=== PATIENT | female | born 1990 | race Two or more races ===

== ENCOUNTER 2021-02-21 08:37 | Emergency (ER) | payer SELFPAY ==
[~2021-02-21] VITALS: Ht 160 cm; Wt 97.7 kg
--- NOTE | 2021-02-21 09:26 | ED.ADGEN ---
General Adult EDM: Chief Complaint: ABDOMINAL PAIN HPI: HPI: Patient is a 30 year old female coming in for left lower quadrant abdominal pain woke her from sleep a few hours prior to arrival. Patient states she will vomit once. States she felt fine when she went to bed last night. Denies any constipation, diarrhea, hematuria dysuria. No history of kidney stones or abdominal surgeries. LMP 1 week ago. Review of Systems: Review of Systems: All other systems within normal limits except for as noted in the HPI Current Medications: Current Medications Medications (Trade) Dose Ordered Sig/Tamar Start Time Stop Time Status Last Admin Dose Admin Fentanyl Citrate (Fentanyl 2ml Vial) 75 mcg 1X ONCE 02/21/21 11:00 02/21/21 11:01 DC 02/21/21 10:55 75 MCG Info (CONTRAST GIVEN -- Rx MONITORING) 1 each PRN DAILY PRN 02/21/21 12:00 02/21/21 14:02 DC Iohexol (Omnipaque 300 Mg/ml) 75 ml 1X ONCE 02/21/21 12:00 02/21/21 12:01 DC 02/21/21 12:09 75 ML Ketorolac Tromethamine (Toradol 15mg Vial) 15 mg 1X ONCE 02/21/21 11:45 02/21/21 11:46 DC 02/21/21 12:04 15 MG Ondansetron HCl (Zofran Odt) 4 mg 1X ONCE 02/21/21 14:15 02/21/21 14:16 DC 02/21/21 14:08 4 MG Ondansetron HCl (Zofran) 4 mg 1X ONCE 02/21/21 10:00 02/21/21 10:01 DC 02/21/21 09:58 4 MG Sodium Chloride 1,000 ml @ 1,000 mls/hr 1X ONCE 02/21/21 12:30 02/21/21 13:29 DC 02/21/21 12:33 1,000 MLS/HR Tamsulosin HCl (Flomax) 0.4 mg 1X ONCE 02/21/21 12:45 02/21/21 12:46 DC 02/21/21 12:33 0.4 MG Allergies: Allergies: Allergies Coded Allergies Type Severity Reaction Last Updated Verified No Known Drug Allergies 02/21/21 No Physical Exam: PE: Constitutional: Well developed, well nourished, moderate acute distress, non- toxic appearance. [] HENT: Normocephalic, atraumatic, bilateral external ears normal, nose normal. [] Eyes: PERRLA, conjunctiva normal, no discharge. [] Neck: No rigidity, supple, no stridor. [] Cardiovascular: Regular rate and rhythm, brisk cap refill [] Lungs & Thorax: Non labored symmetric respirations, no tachypnea or respiratory distress [] Abdomen: Soft, nondistended, left lower quadrant tenderness with guarding. Skin: Warm, dry, no erythema, no rash. [] Back: Unremarkable Extremities: No deformities, range of motion grossly intact, no lower extremity edema [] Neurologic: Alert and oriented X 3, no focal deficits noted. [] Psychologic: Affect normal, judgement normal, mood normal. [] Current Patient Data: Labs: Laboratory Tests Test 02/21/21 09:40 02/21/21 10:05 02/21/21 10:40 Urine Collection Type Void Urine Color Yellow Urine Clarity Turbid Urine pH 5.5 (<5.0-8.0) Urine Specific [place] >=1.030 (1.000-1.030) Urine Protein Negative mg/dL (NEG-TRACE) Urine Glucose (UA) Negative mg/dL (NEG) Urine Ketones (Stick) Negative mg/dL (NEG) Urine Blood Large (NEG) Urine Nitrite Negative (NEG) Urine Bilirubin Negative (NEG) Urine Urobilinogen Dipstick 0.2 mg/dL (0.2 mg/dL) Urine Leukocyte Esterase Trace (NEG) Urine RBC 6-10 /HPF (0-2) Urine WBC 1-4 /HPF (0-4) Urine Squamous Epithelial Cells Few /LPF Urine Amorphous Sediment Present /HPF Urine Bacteria Few /HPF (0-FEW) POC Urine HCG, Qualitative Hcg negative (Negative) White Blood Count 11.6 x10^3/uL (4.0-11.0) H Red Blood Count 3.99 x10^6/uL (3.50-5.40) Hemoglobin 12.0 g/dL (12.0-15.5) Hematocrit 34.9 % (36.0-47.0) L Mean Corpuscular Volume 88 fL (79-100) Mean Corpuscular Hemoglobin 30 pg (25-35) Mean Corpuscular Hemoglobin Concent 34 g/dL (31-37) Red Cell Distribution Width 13.8 % (11.5-14.5) Platelet Count 305 x10^3/uL (140-400) Neutrophils (%) (Auto) 85 % (31-73) H Lymphocytes (%) (Auto) 10 % (24-48) L Monocytes (%) (Auto) 4 % (0-9) Eosinophils (%) (Auto) 0 % (0-3) Basophils (%) (Auto) 1 % (0-3) Neutrophils # (Auto) 9.9 x10^3/uL (1.8-7.7) H Lymphocytes # (Auto) 1.2 x10^3/uL (1.0-4.8) Monocytes # (Auto) 0.4 x10^3/uL (0.0-1.1) Eosinophils # (Auto) 0.0 x10^3/uL (0.0-0.7) Basophils # (Auto) 0.1 x10^3/uL (0.0-0.2) Segmented Neutrophils % 87 % (35-66) H Band Neutrophils % 1 % (0-9) Lymphocytes % 10 % (24-48) L Monocytes % 2 % (0-10) Platelet Estimate Adequate (ADEQUATE) Large Platelets Occ Sodium Level 146 mmol/L (136-145) H Potassium Level 3.6 mmol/L (3.5-5.1) Chloride Level 108 mmol/L (98-107) H Carbon Dioxide Level 26 mmol/L (21-32) Anion Gap 12 (6-14) Blood Urea Nitrogen 13 mg/dL (7-20) Creatinine 0.9 mg/dL (0.6-1.0) Estimated GFR (Cockcroft-Gault) 73.5 BUN/Creatinine Ratio 14 (6-20) Glucose Level 114 mg/dL (70-99) H Calcium Level 8.5 mg/dL (8.5-10.1) Total Bilirubin 0.2 mg/dL (0.2-1.0) Aspartate Amino Transferase (AST) 17 U/L (15-37) Alanine Aminotransferase (ALT) 26 U/L (14-59) Alkaline Phosphatase 88 U/L (46-116) Total Protein 7.2 g/dL (6.4-8.2) Albumin 3.5 g/dL (3.4-5.0) Albumin/Globulin Ratio 0.9 (1.0-1.7) L Lipase 53 U/L (73-393) L Laboratory Tests 02/21/21 10:40 Laboratory Tests 02/21/21 10:40 Vital Signs: Vital Signs Date Time Temp Pulse Resp B/P (MAP) Pulse Ox O2 Delivery O2 Flow Rate FiO2 02/21/21 12:45 73 16 119/76 (90) 98 Room Air 02/21/21 09:20 98.5 98.5 EKG: EKG: [] Heart Score: C/O Chest Pain: No Risk Factors: Risk Factors: DM, Current or recent (<one month) smoker, HTN, HLP, family history of CAD, obesity. Risk Scores: Score 0 - 3: 2.5% MACE over next 6 weeks - Discharge Home Score 4 - 6: 20.3% MACE over next 6 weeks - Admit for Clinical Observation Score 7 - 10: 72.7% MACE over next 6 weeks - Early Invasive Strategies Radiology/Procedures: Radiology/Procedures: [facility] [address] [place] [address] IMAGING REPORT Signed PATIENT: COLEMAN SILVA MACCOUNT: [id number] : 1990 LOCATION: ER AGE: 30 SEX: F EXAM STATUS: REG ER ORD. PHYSICIAN: JONO JANSEN MD REASON: LLQ pain PROCEDURE: CT ABD PELV W/ IV CONTRST ONLY Axial CT of the abdomen and pelvis were obtained after the administration of 75 cc Omnipaque 300. Coronal and sagittal reformats are also available. Exposure: One or more of the following individualized dose reduction techniques were utilized for this examination: 1. Automated exposure control 2. Adjustment of the mA and/or kV according to patient size 3. Use of iterative reconstruction technique Indication: Left lower quadrant pain. Comparison: None. Findings: The heart is enlarged. Lung bases are clear. Liver, gallbladder, spleen, adrenals and right kidney are unremarkable in appearance. There is delayed enhancement of the left kidney. There is mild perinephric fat stranding. There is mild hydronephrosis and hydroureter. In the distal ureter there is a punctate calculus seen on axial series 2 image 84. There is trace fluid in the cul-de-sac. The appendix is not clearly identified, however, no soft tissue stranding is identified in the right lower quadrant. Bony structures are unremarkable in appearance. No radiologically significant retroperitoneal or mesenteric lymphadenopathy is seen. No free air. Abdominal aorta is nonaneurysmal. Portal, superior mesenteric and splenic veins are normal in appearance. IMPRESSION: 1. Findings suggest a punctate calculus in the left distal ureter with minimal hydronephrosis and hydroureter proximally as well as mild decreased perfusion of the left kidney suggesting mildly impaired renal function. Electronically signed by: Lloyd Devine MD (02/21/2021 12:25 PM) [id number] DICTATED and SIGNED BY: LLODY DEVINE MD DATE: 02/21/21 [id number] [] Course & Med Decision Making: Course & Med Decision Making Pertinent Labs and Imaging studies reviewed. (See chart for details) [] Dragon Disclaimer: Dragon Disclaimer: This electronic medical record was generated, in whole or in part, using a voice recognition dictation system. Departure Departure Impression: Primary Impression: Kidney stone Disposition: HOME / SELF CARE / HOMELESS Condition: STABLE Referrals: NO PCP (PCP) Patient Instructions: Diet for Kidney Stones Additional Instructions: Follow-up with [facility] Call for appointment in 7 to 10 days. Scripts Hydrocodone/Acetaminophen (Hydrocodone-Acetamin 5-325 mg) 1 Each Tablet 1 EACH PO PRN Q4-6HRS PRN for PAIN for 3 Days, #20 TAB Prov: JONO JANSEN MD 02/21/21 Ibuprofen (IBUPROFEN) 800 Mg Tablet 800 MG PO PRN Q8HRS PRN for PAIN for 10 Days, #20 TAB Prov: JONO JANSEN MD 02/21/21 Ondansetron (ONDANSETRON ODT) 4 Mg Tab.rapdis 1 TAB PO PRN Q6-8HRS PRN for NAUSEA for 3 Days, #16 TAB Prov: JONO JANSEN MD 02/21/21 Tamsulosin Hcl (FLOMAX) 0.4 Mg Cap.er.24h 1 CAP PO DAILY for kidney stone for 10 Days, #10 CAP 0 Refills Prov: JONO JANSEN MD 02/21/21 JONO JANSEN MD Feb 21, 2021 09:26
[2021-02-21] MEDS ORDERED: fentaNYL PF VIAL 100 MCG/2 ML VIAL IVP ONE ×2 (10:00→11:00)
[2021-02-21] MEDS ORDERED: ONDANSETRON PF 4 MG/2 ML VIAL. IVP ONE (10:00)
[2021-02-21 10:18] LABS: BILIRUBIN,URINE NEGATIVE (NEG); CLARITY,URINE TURBID; COLOR,URINE YELLOW; NITRITE,URINE NEGATIVE (NEG); PH,URINE 5.5 (<5.0-8.0); PROTEIN,URINE NEGATIVE (NEG-TRACE); UROBILINOGEN,URINE 0.2 mg/dL (0.2 mg/dL)
[2021-02-21 10:29] LABS: AMORPHOUS SEDIMENT,UR PRESENT /HPF; BACTERIA,URINE FEW /HPF (0-FEW)
[2021-02-21 10:56] LABS: BASO # 0.1 x10^3/uL (0.0-0.2); BASO % 1 % (0-3); EOS % 0 % (0-3); HEMATOCRIT 34.9 % (36.0-47.0); LYMPH # 1.2 x10^3/uL (1.0-4.8); LYMPH % 10 % (24-48); MEAN CORPUSCULAR HEMOGLOBIN 30 pg (25-35); MEAN CORPUSCULAR HGB CONC 34 g/dL (31-37); MEAN CORPUSCULAR VOLUME 88 fL (79-100); MONO # 0.4 x10^3/uL (0.0-1.1); MONO % 4 % (0-9); NEUT # 9.9 x10^3/uL (1.8-7.7); NEUT % 85 % (31-73); PLATELET COUNT 305 x10^3/uL (140-400); RED BLOOD COUNT 3.99 x10^6/uL (3.50-5.40); RED CELL DISTRIBUTION WIDTH 13.8 % (11.5-14.5); WHITE BLOOD COUNT 11.6 x10^3/uL (4.0-11.0)
[2021-02-21 11:07] LABS: CALCIUM 8.5 mg/dL (8.5-10.1); CREATININE 0.9 mg/dL (0.6-1.0); GFR 73.5; POTASSIUM 3.6 mmol/L (3.5-5.1)
[2021-02-21 11:14] LABS: ALBUMIN 3.5 g/dL (3.4-5.0); ALBUMIN/GLOBULIN RATIO 0.9 (1.0-1.7); TOTAL BILIRUBIN 0.2 mg/dL (0.2-1.0); TOTAL PROTEIN 7.2 g/dL (6.4-8.2)
[2021-02-21] MEDS ORDERED: KETOROLAC 15 MG/ML VIAL. IVP ONE (11:45)
[2021-02-21] MEDS ORDERED: CONTRAST GIVEN. MC PRN (12:00)
[2021-02-21] MEDS ORDERED: IOHEXOL 300 MG/ML 100ML VIAL. IV ONE (12:00)
[2021-02-21 12:16] LABS: % BANDS 1 % (0-9); % LYMPHS 10 % (24-48); % MONOS 2 % (0-10); % SEGS 87 % (35-66); PLT ESTIMATE ADEQUATE (ADEQUATE)
--- NOTE | 2021-02-21 12:27 | RAD ---
Axial CT of the abdomen and pelvis were obtained after the administration of 75 cc Omnipaque 300. Cor onal and sagittal reformats are also available. Exposure: One or more of the following individualized dose reduction techniques were utilized for thi s examination: 1. Automated exposure control 2. Adjustment of the mA and/or kV according to patient size 3. Use of iterative reconstruction technique Indication: Left lower quadrant pain. Comparison: None. Findings: The heart is enlarged. Lung bases are clear. Liver, gallbladder, spleen, adrenals and right kidney are unremarkable in appearance. There is delaye d enhancement of the left kidney. There is mild perinephric fat stranding. There is mild hydronephros is and hydroureter. In the distal ureter there is a punctate calculus seen on axial series 2 image 84 . There is trace fluid in the cul-de-sac. The appendix is not clearly identified, however, no soft ti ssue stranding is identified in the right lower quadrant. Bony structures are unremarkable in appeara nce. No radiologically significant retroperitoneal or mesenteric lymphadenopathy is seen. No free air . Abdominal aorta is nonaneurysmal. Portal, superior mesenteric and splenic veins are normal in appea raisa. IMPRESSION: 1. Findings suggest a punctate calculus in the left distal ureter with minimal hydronephrosis and hyd roureter proximally as well as mild decreased perfusion of the left kidney suggesting mildly impaired renal function. Electronically signed by: Lloyd Lieberman MD (02/21/2021 12:25 PM) [id number]
[2021-02-21] MEDS ORDERED: IV NORMAL SALINE 1000ML BAG 1,000 ML IV ONE (12:30)
[2021-02-21] MEDS ORDERED: ONDA4TAB12 PO (12:35)
[2021-02-21] MEDS ORDERED: HYDR-2759 PO (12:35)
[2021-02-21] MEDS ORDERED: IBUP-1060 PO (12:35)
[2021-02-21] MEDS ORDERED: TAMS0.4C97 PO (12:35)
[2021-02-21 12:45] VITALS: BP 119/76
[2021-02-21] MEDS ORDERED: TAMSULOSIN 0.4 MG CAP.ER.24H. PO ONE (12:45)
[2021-02-21] MEDS ORDERED: ONDANSETRON ODT 4 MG TAB.RAPDIS. PO ONE (14:15)
== END 2021-02-21 14:00 | disposition home or self-care (01) ==
LOC: ER 08:37
DX: N13.2 Hydronephrosis with renal and ureteral calculous obstruction (principal)
CPT/HCPCS: 36415; 74177; 80053; 81001; 81025; 83690; 85007; 85025; 87086; 96361; 96374; 96375; 96376; 99285; J1885; J2405; J3010; J7030; Q9967